=== PATIENT | male | born 1940 | race Caucasian/White ===

== ENCOUNTER 2016-07-20 12:33 | Day surgery (SDC) | payer OTHER, BC ==
[~2016-07-20 12:33] MED LIST: ceFAZolin 2 GM/DEXTROSE 100 ML IV ONE
[2016-07-20] MEDS ORDERED: MINERAL OIL 10 ML VIAL TP ONE (13:02)
[2016-07-20] MEDS ORDERED: BALANCED SALT IRRIG SOLN 15 ML OPHT.BTL ONE (13:03)
[2016-07-20] MEDS ORDERED: METHYLENE BLUE 0.5% 50 MG/10 ML AMP ONE (13:03)
[2016-07-20] MEDS ORDERED: LIDO/EPI 1% **Not for Epidural 20 ML MDV ONE (13:03)
[2016-07-20 13:19] LABS: ANION GAP 11 mEq/L (8-16); CALCIUM 9.1 mg/dL (8.5-10.4); CARBON DIOXIDE 26 mEq/l (22-31); CHLORIDE 103 mEq/L (97-110); CREATININE 1.1 mg/dL (0.7-1.3); GLOMERULAR FILTRATION RATE > 60; GLUCOSE 142 mg/dL (70-100); POTASSIUM 3.9 mEq/L (3.5-5.2); SODIUM 140 mEq/L (134-144)
[2016-07-20] MEDS ORDERED: CEFAZOLIN 2 GM/DEXTROSE/100 ML BAG IV ONE ×2 (13:53→13:54)
[2016-07-20] MEDS ORDERED: PROPOFOL/EMULSION 500 MG/50 ML BOTTLE IV ONE (14:10)
[2016-07-20] MEDS ORDERED: MIDAZOLAM 2 MG/2 ML VIAL ONE (14:11)
[2016-07-20] MEDS ORDERED: fentaNYL 100 MCG/2 ML INJ ONE ×2 (14:14→15:19)
--- NOTE | 2016-07-25 08:56 | GOP ---
[f rep st] OPERATIVE REPORT DATE OF OPERATION: 07/20/2016 SURGEON: Bailey Mejia MD SYSTEMS ANALYST ENGINEER: None. ANESTHESIA: General endotracheal. PREOPERATIVE DIAGNOSIS: Melanoma of right scalp. POSTOPERATIVE DIAGNOSIS: Melanoma of right scalp. PROCEDURE PERFORMED: 1. Wide local excision of scalp melanoma, total excisional diameter 5.2 x 5.7 cm. 2. Marston lymph node biopsy. FINDINGS: SPECIMENS: 1. Primary excision of right scalp melanoma. 2. Deep margin scalp melanoma. 3. Marston lymph node biopsy #1 Neoprobe registration at 3800. 4. Marston lymph node biopsy #2 Neoprobe registration at 850. 1. Marston lymph node biopsy #3 Neoprobe registration at 1200. 5. ESTIMATED BLOOD LOSS: 50 cc. INDICATIONS: The patient is a 75-year-old with a deep greater than Robert level 5 biopsy that was pe rformed of the right scalp by Dr. Davis Jones. PET scan imaging did not demonstrate any widely meta static disease and the risks, benefits, and alternatives of the above procedure were discussed. DESCRIPTION OF PROCEDURE: The patient was marked in preoperative holding. Informed consent was con firmed. After the patient was brought to the operating room, he underwent induction of general anes thesia, placing an endotracheal tube without difficulty. He was then rolled supine onto the operati ve table and then positioned, prepped and draped in the standard fashion. 150 of methylene blue was infiltrated throughout the previously marked primary site. He had already undergone lymphoscintigr aphy with nuclear medicine approximately 2 hours before. After waiting a total of 10 minutes for th e dye to enter the lymphatic system, wide local excision of the primary lesion was then performed. The primary lesion what was remaining after the biopsy measured 1.2 x 1.4 cm and the total excision of the specimen was 5.2 x 5.7 cm creating at least a 3 cm margin if not more in some areas laterally . The stitch was placed at the 12 o'clock position for orientation purposes. Next, a 1 cm x 3 mm periosteal biopsy was then performed at the center portion of the specimen repre senting the depth margins of the primary site. At this point, hemostasis was achieved with monopola r and bipolar cautery. At this point, I turned my attention to the sentinel lymph node biopsy. Lym phoscintigraphy had localized this to the posterior lymphatic chain. The primary site upon removal was registering around 10,000. There were several spots that were registering approximately 4000 in the posterior neck. A 5 cm incision in a natural crease in the posterior neck was then performed. A combination of blunt and sharp dissection was taken down to the level of the subcutaneous and musc le bed. The accessory nerve was identified and preserved. Using the Neoprobe as well as the visual identification, the 1st sentinel lymph node was identified. This was blue and registered at 3800 o n the Neoprobe. This was removed and sent as sentinel lymph node #1. There was still a fairly high number up to 2000 noted in the operative bed, and I opted to search for a couple more lymph nodes. The 2nd one was identified. This was not blue and only registered at 850. There still remained a fairly high count in the bed and a 3rd lymph node was identified in the same area which registered 1 200. At this point, the counts in the bed were then dropped to approximately 300, and I opted to st op at this point. The wound was then copiously irrigated with sterile saline and closed in layers with 2-0 Vicryl V, 4 -0 Monocryl in a subdermal fashion, and then Dermabond on top and the incision measured a total of 5 cm. At this point, pressure dressing was applied to the primary scalp lesions and the patient was then turned back to Anesthesia for wake up. At the end of this procedure, all sponge and sharp coun ts were correct. I personally performed all portions of the case. FLUIDS: 1 L crystalloid. /[id number]/MODL
== END 2016-07-20 17:50 | disposition home or self-care (01) ==
LOC: FSGY 12:33 → EDBD 13:45 → FSGY 17:50
PROVIDERS: ATTEND Otolaryngology
PROC: 3E0W3KZ Introduction of Other Diagnostic Substance into Lymphatics, Percutaneous Approach (ICD-10-PCS; principal; 2016-07-20 13:45)
PROC: 07B10ZZ Excision of Right Neck Lymphatic, Open Approach (ICD-10-PCS; principal; 2016-07-20 13:45)
PROC: 0JB00ZZ Excision of Scalp Subcutaneous Tissue and Fascia, Open Approach (ICD-10-PCS; principal; 2016-07-20 13:45)
DX: C43.4 Malignant melanoma of scalp and neck (principal); E11.9 Type 2 diabetes mellitus without complications; I10 Essential (primary) hypertension; Z85.828 Personal history of other malignant neoplasm of skin; Z96.643 Presence of artificial hip joint, bilateral
CPT/HCPCS: 11626; 38510; 78195; A9520; J0690; J2250; J2704; J3010; Q9968